=== PATIENT | female | born 1980 | race African-American/Black ===

== ENCOUNTER 2017-11-18 09:17 | Emergency (ER) | payer OTHER ==
[~2017-11-18] VITALS: Ht 167.6 cm; Wt 98.9 kg
[2017-11-18 09:21] VITALS: BP 157/100
--- NOTE | 2017-11-18 09:30 | NUR ---
PT AMBULATES W/ STEADY GAIT TO BED 3 AT THIS TIME W/O INCIDENT.
--- NOTE | 2017-11-18 09:43 | NUR ---
37 YO F BIB SELF W/ C/O CHEST DISCOMFORT. PT IS AMBULATORY AND TALKING IN FULL AND COMPLETE SENTENCES. APPRPRIATE SPEECH AND PATTERN. PT REPORTS THAT THE CHEST DISCOMFORT HAS BEEN GOING ON SINCE ABOUT AUGUST WHEN THE STRESS OF HER JOB BECAME "OVERBEARING". REPORTS SHE WENT ON "STRESS LEAVE" AT WORK. PT REPORTS ECZEMA FLARE UP BILATERAL HANDS THAT IS VERY PAINFUL. PT STRUGGLES W/ ANXIETY/DEPRESSION BUT HAS BEEN UNABLE TO GET AN APPOINTMENT FOR PSYCH AT THIS TIME. AAOX4. GSC 15. CMS INTACT. RR EVEN AND UNLABORED. LUNGS BILATERALLLY CLEAR. ER MD BURNS NOTIFIED. SAFETY PRECAUTIONS IN PLACE. PT NEEDS MET. WILL CONTINUE TO MONITOR.
[2017-11-18 10:45] VITALS: BP 133/85
== END 2017-11-18 10:44 | disposition home or self-care (01) ==
LOC: MED 09:17
DX: F41.9 Anxiety disorder, unspecified (principal); F43.21 Adjustment disorder with depressed mood; F32.9 Major depressive disorder, single episode, unspecified
CPT/HCPCS: 81002; 81025; 99284